=== PATIENT | male | born 1965 | race Hispanic/Latino ===

== ENCOUNTER 2020-08-23 05:55 | Day surgery (SDC) | payer BC ==
[~2020-08-23] VITALS: Ht 172.7 cm; Wt 88.6 kg
--- NOTE | 2020-08-23 06:14 | NUR ---
[facility] RAPID COVID TEST DONE PER ORDER. COVID TEST COLLECTED FROM BOTH NARES W/O ISSUES. PT TOLERATED WELL.
--- NOTE | 2020-08-23 09:36 | NUR ---
08/23/20 0936 Sheets,Beverly 0951 PT ARRIVED TO PACU ON 10L VIA MASK, VSS. SNORING NOTED, RESP EVEN AND UNLABORED. PT REACTIVE TO PAINFUL STIMULI. 33 PT REORIENTED TO PACU AND EASILY FALLS BACK TO SLEEP. O2 TO 6L. PT COUGHING TWICE.
--- NOTE | 2020-08-23 09:55 | NUR ---
PT IS BACK TO DS FROM PACU. HE IS BACK TO HIS BASELINE. IS AT THE BEDSIDE. HE IS DENYING PAIN/NAUSEA AT THIS TIME. CALL LIGHT WITHIN REACH. WATER ON BEDSIDE TABLE. HE WOULD LIKE SOME JELLO. NO ADDITIONAL NEEDS AT THIS TIME.
[2020-08-23] MEDS ORDERED: NORCO 10-325 T1 EACH PO (10:09)
--- NOTE | 2020-08-23 11:22 | OR ---
[facility] [address], [place] [address] Signed DATE OF OPERATION: 08/23/2020 SURGEON: Ree Dsouza MD PREOPERATIVE DIAGNOSIS: Left inguinal subcutaneous mass (2 x 4 x 6 cm). POSTOPERATIVE DIAGNOSIS: Left inguinal subcutaneous mass (2 x 4 x 6 cm). PROCEDURE: Excision of subcutaneous left inguinal mass. ESTIMATED BLOOD LOSS: None. FINDINGS: Jayant has a lipoma based on clinical evaluation. 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 The last couple months he and his both have noticed a small lump in the left groin. He said it was about a cm when it started. It has grown very rapidly. It is now up to 2 x 4 x 6 cm. It is soft and underneath the skin. It is somewhat lateral and slightly superior to the inguinal canal. It has been causing him a lot of pain particularly at work while driving a forklift. Consequently, he went to the [facility]. They ordered an ultrasound and this showed subcutaneous mass, but no obvious hernia. Most likely based on physical exam and ultrasound findings, it is a lipoma. Because of his ongoing symptoms and the rapid increase in size, he was asked to see me with respect to the above. In the office, I met with Jayant and his . I explained to them we could make an oblique incision over this lesion and remove it for definitive treatment and diagnosis. We had reviewed the expected intraop and postop course, they understand there is risk including, but not limited to bleeding, infection, scarring, change in contour of the skin as well as recurrent lesions in the same or other locations. They had expressed understanding and wished to proceed. DESCRIPTION OF PROCEDURE: I met with Jayant and his in our preop area. We all agreed on the lesion in the left groin. We marked that appropriately. After this, Jayant was taken into the operating room and placed in the supine position under general LMA anesthesia. He was given Electronically Signed By: REE DSOUZA MD 08/23/20 1122 PATIENT NAME: JAYANT LAM OPERATIVE REPORT DATE OF : 65 REPORT #: [id number] PHYSICIAN: REE DSOUZA MD PCP: NO PRIMARY CARE PHYSICIAN REPORT IS CONFIDENTIAL AND NOT TO BE RELEASED WITHOUT AUTHORIZATION [facility] [address] [place] [id number] Signed preoperative antibiotics along with subcutaneous heparin. SCDs were utilized. He was then prepped and draped in the usual sterile fashion. A standard oblique incision was made over the lesion and carried down and around the lesion bluntly and with the cautery. It appears to be a standard lipoma. The entire lesion was thus removed. We injected local anesthetic into the wound. The wound was irrigated and suctioned out until clear. The dermis was reapproximated with interrupted 3-0 subcuticular Monocryl sutures. The skin edges were reapproximated with a running 5-0 fast absorbing plain gut suture. Dry gauze and tape were then applied. Jayant was awakened from his anesthesia, extubated in the OR, and taken to the recovery room in stable condition. Ree Dsouza MD ALB/MODL /[id number] cc: [facility] Ree Dsouza MD Copies: REE DSOUZA MD ~ Electronically Signed By: REE DSOUZA MD 08/23/20 1122 PATIENT NAME: JAYANT LAM OPERATIVE REPORT DATE OF : 65 REPORT #: [id number] PHYSICIAN: REE DSOUZA MD PCP: NO PRIMARY CARE PHYSICIAN REPORT IS CONFIDENTIAL AND NOT TO BE RELEASED WITHOUT AUTHORIZATION
--- NOTE | 2020-08-23 11:28 | NUR ---
BETH 1050: PT WOULD LIKE TO GET UP AND USE THE RESTROOM. HE AMBULATES HIMSELF WITHOUT ISSUE. HE REPORTS BEING ABLE TO EMPTY HIS BLADDER. PT WOULD LIKE TO GO HOME AT THIS POINT. HE IS EDUCATED ON HOW TO BEST DRESS HIMSELF AND TO OPEN THE CURTAIN WHEN HE IS READY.
--- NOTE | 2020-08-23 11:29 | NUR ---
LE 1100: PT IS GIVEN VERBAL DC INSTRUCTIONS WITH PRESENT, THEY BOTH VERBALIZE UNDERSTANDING. QUESTIONS ARE ASKED AND ANSWERED. PT IS TAKEN TO VEHICLE IN WC.
--- NOTE | 2020-08-28 14:08 | PATH ---
[facility] [address] [place], [place] [address] Signed SPECIMEN(S): A SUBCUTANEOUS MASS OF LEFT GROIN SPECIMEN SOURCE: A. SUBCUTANEOUS MASS OF LEFT GROIN CLINICAL HISTORY: Lipoma of left groin. FINAL PATHOLOGIC DIAGNOSIS: Soft tissue, left groin subcutaneous mass, excision: - Lobules of mature fibroadipose tissue, consistent with lipoma. NAL:cml:C2NR MICROSCOPIC EXAMINATION: Histologic sections of all submitted blocks are examined by light microscopy. These findings, together with the gross examination, support the pathologic diagnosis. GROSS DESCRIPTION: The specimen, labeled "Arden GUERRERO," and designated on the requisition "subcutaneous mass left groin, lipoma at left groin," is received in formalin and consists of a 47 g, thinly encapsulated, rubbery, irregularly-shaped, 8.2 x 4.3 x 3.5 cm mass. The external surface is inked blue and the specimen is cross-sectioned to reveal yellow, homogenous, grossly unremarkable. A discrete mass/lesion is not grossly identified. Fowl Blood Tester sections are submitted in one cassette (A1). AI (under the direct supervision of a pathologist) The Gross Description was prepared using a voice recognition system. The report was reviewed for accuracy; however, sound-alike word errors, addition and/or deletions may occur. If there is any question about this report, please contact Client Services. PERFORMING LABORATORY: The technical component was performed by [facility], [address] [place] [id number] (Rustic Fence Builder: Olivia Gonzalez MD; CLIA# [id number]). [facility], [address] [address] (CLIA# [id number]). Diagnostician: Mihaela Dolan MD PATIENT NAME: CAYDEN LAM PATHOLOGY DATE OF : 65 REPORT #: [id number] PHYSICIAN: [facility] PCP: NO PRIMARY CARE PHYSICIAN REPORT IS CONFIDENTIAL AND NOT TO BE RELEASED WITHOUT AUTHORIZATION [address] [place], [place] [address] Signed Pathologist Electronically Signed 08/28/2020 Copies: ~ PATIENT NAME: CAYDEN LAM PATHOLOGY DATE OF : 65 REPORT #: [id number] PHYSICIAN: [facility] PCP: NO PRIMARY CARE PHYSICIAN REPORT IS CONFIDENTIAL AND NOT TO BE RELEASED WITHOUT AUTHORIZATION
== END 2020-08-23 11:05 | disposition home or self-care (01) ==
LOC: DS 05:55
PROVIDERS: ATTEND Colon & Rectal Surgery
PROC: 0JBF0ZZ Excision of Left Upper Arm Subcutaneous Tissue and Fascia, Open Approach (ICD-10-PCS; principal; 2020-08-23 10:30)
DX: D17.1 Benign lipomatous neoplasm of skin and subcutaneous tissue of trunk (principal); E78.2 Mixed hyperlipidemia; K21.9 Gastro-esophageal reflux disease without esophagitis; Z87.891 Personal history of nicotine dependence; Z11.59 Encounter for screening for other viral diseases; Z20.828 Contact with and (suspected) exposure to other viral communicable diseases
CPT/HCPCS: 00400; C9803; J0690; J1100; J1644; J1885; J2250; J2405; J2704; J2765; J3010; J7121; U0003